=== PATIENT | female | born 2000 | race Caucasian/White ===

== ENCOUNTER 2024-09-08 12:23 | Emergency (ER) | payer OTHER ==
[~2024-09-08] VITALS: Ht 157.5 cm; Wt 42.6 kg
[2024-09-08 12:51] LABS: Source, Urine Clean Catch
[2024-09-08 12:56] LABS: BASOPHILS ABSOLUTE AUTO 0.03 K/mm3 (0.00-0.23); BASOPHILS PERCENT AUTO 0 % (0-2); EOSINOPHILS ABSOLUTE AUTO 0.07 K/mm3 (0.00-0.68); EOSINOPHILS PERCENT AUTO 1 % (0-6); Hematocrit 40.6 % (33.0-51.0); Hemoglobin 13.8 g/dL (11.5-16.0); IMMATURE GRAN ABSOLUTE AUTO 0.02 K/mm3 (0.00-0.10); IMMATURE GRAN PERCENT AUTO 0 % (0-1); LYMPHOCYTES PERCENT AUTO 16 % (21-46); MONOCYTES ABSOLUTE AUTO 0.67 K/mm3 (0.16-1.47); MONOCYTES PERCENT AUTO 7 % (4-13); Mean Corpuscular HGB 30.7 pg (26.0-34.0); Mean Corpuscular Volume 90 fL (80-100); Mean Platelet Volume 10.3 fL (9.1-12.4); NEUTROPHILS ABSOLUTE AUTO 6.87 K/mm3 (1.96-9.15); NEUTROPHILS PERCENT AUTO 75 % (41-73); Platelet Count 260 K/mm3 (150-400); RDW Coefficient Variation 13.2 % (11.7-14.2); RDW Standard Deviation 43.9 fL (35.1-46.3); White Blood Cell Count 9.16 K/mm3 (4.00-11.30)
[2024-09-08 13:15] LABS: Albumin, Blood 3.9 g/dL (3.4-5.0); Albumin/Globulin Ratio 1.1 (0.8-1.8); Bilirubin, Total 0.5 mg/dL (0.1-1.0); Bun/Creatinine Ratio 20.2 (12.0-20.0); Calcium, Blood 9.2 mg/dL (8.5-10.1); Creatinine, Blood 0.64 mg/dL (0.40-1.00); Globulin, Blood 3.5 g/dL (2.2-4.0); Total Protein, Blood 7.4 g/dL (6.4-8.2)
[2024-09-08 13:20] LABS: Appearance, Urine Hazy (Clear); Bilirubin, Urine Neg (Neg); Blood, Urine 4+ (Neg); Color, Urine Yellow (P-Yellow); Glucose Qualitative, Urine Neg (Neg); Ketones, Urine Neg (Neg); Leukocyte Esterase, Urine 3+ (Neg); Nitrite, Urine Pos (Neg); Protein, Urine 2+ (Neg); Specific Gravity, Urine 1.015 (1.003-1.022); Urobilinogen, Urine NORM (Normal)
[2024-09-08 13:27] LABS: Bacteria Many /hpf; Squamous Epithelial Cells Few /hpf (Few); White Blood Cells, Urine TNTC /hpf (0-5)
[2024-09-08] MEDS ORDERED: Cefdinir 300 MG Cap PO ONE (14:10)
[2024-09-08] MEDS ORDERED: Ketorolac Tromethamine 15mg Vial IV ONE (14:10)
[2024-09-08] MEDS ORDERED: CEFD300 PO (14:12)
== END 2024-09-08 14:22 | disposition home or self-care (01) ==
LOC: ER 12:23
PROVIDERS: Emergency Medicine
DX: N10 Acute pyelonephritis (principal); Z88.5 Allergy status to narcotic agent
CPT/HCPCS: 80053; 81001; 85025; 87077; 87086; 87186; 96374; 99283-25; A9270; J1885

== ENCOUNTER → 2024-10-21 | Outpatient (CLI) | payer OTHER ==
[~2024-10-21] MED LIST: CEFD300 PO
[2024-10-21 11:24] LABS: Source, Urine Clean Catch
[2024-10-21 13:04] LABS: Appearance, Urine Clear (Clear); Bilirubin, Urine Neg (Neg); Blood, Urine Neg (Neg); Color, Urine Yellow (P-Yellow); Glucose Qualitative, Urine Neg (Neg); Ketones, Urine 1+ (Neg); Leukocyte Esterase, Urine 1+ (Neg); Nitrite, Urine Neg (Neg); Protein, Urine 2+ (Neg); Urobilinogen, Urine 1+ (Normal)
[2024-10-21 13:15] LABS: Bacteria Few /hpf; Mucus Light (0-Heavy); Red Blood Cells, Urine Not Seen /hpf (0-2); Squamous Epithelial Cells Rare /hpf (Few); White Blood Cells, Urine 0-2 /hpf (0-5)
[2024-10-21 15:37] LABS: BASOPHILS ABSOLUTE AUTO 0.02 K/mm3 (0.00-0.23); BASOPHILS PERCENT AUTO 0 % (0-2); EOSINOPHILS ABSOLUTE AUTO 0.06 K/mm3 (0.00-0.68); EOSINOPHILS PERCENT AUTO 1 % (0-6); Hematocrit 39.8 % (33.0-51.0); Hemoglobin 13.7 g/dL (11.5-16.0); IMMATURE GRAN ABSOLUTE AUTO 0.01 K/mm3 (0.00-0.10); IMMATURE GRAN PERCENT AUTO 0 % (0-1); LYMPHOCYTES PERCENT AUTO 25 % (21-46); MONOCYTES ABSOLUTE AUTO 0.48 K/mm3 (0.16-1.47); MONOCYTES PERCENT AUTO 9 % (4-13); Mean Corpuscular HGB Conc 34.4 g/dL (31.5-36.5); Mean Corpuscular Volume 90 fL (80-100); Mean Platelet Volume 11.2 fL (9.1-12.4); NEUTROPHILS ABSOLUTE AUTO 3.64 K/mm3 (1.96-9.15); NEUTROPHILS PERCENT AUTO 65 % (41-73); Platelet Count 220 K/mm3 (150-400); RDW Coefficient Variation 13.5 % (11.7-14.2); RDW Standard Deviation 44.2 fL (35.1-46.3); Red Blood Cell Count 4.42 M/mm3 (3.80-5.20); White Blood Cell Count 5.61 K/mm3 (4.00-11.30)
[2024-10-23 09:15] LABS: HEPATITIS B SURFACE ANTIGEN Negative (Negative)
[2024-10-23 11:43] LABS: HIV 1,2 COMBO ANTIGEN/ANTIBODY Negative (Negative)
[2024-10-23 12:16] LABS: HEPATITIS C AB CIA INTERP Negative (Negative); HEPATITIS C ANTIBODY CIA INDEX 0.06 IV
== END | disposition home or self-care (01) ==
LOC: LAB 11:21 → LAB SHORT 11:21
PROVIDERS: Registered Nurse Community Health
DX: Z34.91 Encounter for supervision of normal pregnancy, unspecified, first trimester (principal)
CPT/HCPCS: 81001; 84443; 86803; 87086; 87340; 87389

== ENCOUNTER → 2024-11-04 | Outpatient (CLI) | payer OTHER | END | disposition home or self-care (01) | LOC: LAB SHORT 16:22 → LAB 16:22 | DX: R30.0 Dysuria (principal) | CPT/HCPCS: 87086; 87147 ==

== ENCOUNTER 2024-11-12 20:23 | Emergency (ER) | payer OTHER ==
[~2024-11-12] VITALS: Ht 157.5 cm; Wt 44.5 kg
[2024-11-12 20:47] LABS: BASOPHILS ABSOLUTE AUTO 0.02 K/mm3 (0.00-0.23); BASOPHILS PERCENT AUTO 0 % (0-2); EOSINOPHILS ABSOLUTE AUTO 0.04 K/mm3 (0.00-0.68); EOSINOPHILS PERCENT AUTO 1 % (0-6); Hematocrit 35.8 % (33.0-51.0); Hemoglobin 12.5 g/dL (11.5-16.0); IMMATURE GRAN PERCENT AUTO 0 % (0-1); LYMPHOCYTES ABSOLUTE AUTO 1.41 K/mm3 (0.84-5.20); LYMPHOCYTES PERCENT AUTO 26 % (21-46); MONOCYTES ABSOLUTE AUTO 0.44 K/mm3 (0.16-1.47); MONOCYTES PERCENT AUTO 8 % (4-13); Mean Corpuscular HGB 30.8 pg (26.0-34.0); Mean Corpuscular HGB Conc 34.9 g/dL (31.5-36.5); Mean Corpuscular Volume 88 fL (80-100); Mean Platelet Volume 10.4 fL (9.1-12.4); NEUTROPHILS ABSOLUTE AUTO 3.55 K/mm3 (1.96-9.15); NEUTROPHILS PERCENT AUTO 65 % (41-73); Platelet Count 170 K/mm3 (150-400); RDW Coefficient Variation 13.2 % (11.7-14.2); RDW Standard Deviation 43.1 fL (35.1-46.3); Red Blood Cell Count 4.06 M/mm3 (3.80-5.20); White Blood Cell Count 5.46 K/mm3 (4.00-11.30)
[2024-11-12 21:02] LABS: Source, Urine Clean Catch
[2024-11-12 21:05] LABS: Appearance, Urine Clear (Clear); Bilirubin, Urine Neg (Neg); Blood, Urine Neg (Neg); Color, Urine Yellow (P-Yellow); Glucose Qualitative, Urine Neg (Neg); Ketones, Urine Neg (Neg); Leukocyte Esterase, Urine Neg (Neg); Nitrite, Urine Neg (Neg); Protein, Urine Neg (Neg); Specific Gravity, Urine 1.005 (1.003-1.022); Urobilinogen, Urine NORM (Normal)
[2024-11-12 21:27] LABS: Albumin, Blood 3.9 g/dL (3.4-5.0); Albumin/Globulin Ratio 1.2 (0.8-1.8); Bilirubin, Total 0.4 mg/dL (0.1-1.0); Bun/Creatinine Ratio 13.1 (12.0-20.0); Calcium, Blood 9.3 mg/dL (8.5-10.1); Creatinine, Blood 0.53 mg/dL (0.40-1.00); Globulin, Blood 3.2 g/dL (2.2-4.0); Potassium, Blood 3.4 mmol/L (3.5-5.5); Total Protein, Blood 7.1 g/dL (6.4-8.2)
[2024-11-12] MEDS ORDERED: PRENATAL TABLE1 EAC2 (21:56)
== END 2024-11-12 22:58 | disposition home or self-care (01) ==
LOC: ER 20:23
PROVIDERS: Student in an Organized Health Care Education/Training Program
DX: O20.8 Other hemorrhage in early pregnancy (principal); Z3A.08 8 weeks gestation of pregnancy; Z88.5 Allergy status to narcotic agent; Z79.899 Other long term (current) drug therapy
CPT/HCPCS: 76801; 76817; 80053; 81003; 84702; 85025; 86850; 86900; 86901; 99284-25

== ENCOUNTER → 2024-11-21 | Outpatient (CLI) | payer OTHER ==
[~2024-11-21] MED LIST changes: +PRENATAL TABLE1 EAC2
[2024-11-23 12:04] LABS: APTIMA MEDIA TYPE Urine; C. TRACHOMATIS BY TMA Negative (Negative); N. GONORRHOEAE BY TMA Negative (Negative); SPECIMEN SOURCE Urine
== END ==
LOC: LAB SHORT 16:21 → LAB 16:21
PROVIDERS: Registered Nurse Community Health
DX: Z34.91 Encounter for supervision of normal pregnancy, unspecified, first trimester (principal)
CPT/HCPCS: 87491; 87591

== ENCOUNTER → 2024-12-05 | Outpatient (CLI) | payer OTHER | END | disposition home or self-care (01) | LOC: LAB SHORT 15:35 → LAB 15:35 | DX: E58 Dietary calcium deficiency (principal) | CPT/HCPCS: 82310 ==

== ENCOUNTER → 2024-12-31 | Outpatient (CLI) | payer OTHER | LOC: LAB 19:11 → LAB SHORT 19:11 | DX: Z34.92 Encounter for supervision of normal pregnancy, unspecified, second trimester (principal) | CPT/HCPCS: 87086 ==

== ENCOUNTER 2025-01-10 19:29 | Emergency (ER) | payer OTHER ==
[~2025-01-10] VITALS: Ht 157.5 cm; Wt 45.4 kg
[2025-01-10 20:31] LABS: BASOPHILS ABSOLUTE AUTO 0.01 K/mm3 (0.00-0.23); BASOPHILS PERCENT AUTO 0 % (0-2); EOSINOPHILS ABSOLUTE AUTO 0.02 K/mm3 (0.00-0.68); EOSINOPHILS PERCENT AUTO 0 % (0-6); Hematocrit 33.8 % (33.0-51.0); Hemoglobin 11.9 g/dL (11.5-16.0); IMMATURE GRAN ABSOLUTE AUTO 0.02 K/mm3 (0.00-0.10); IMMATURE GRAN PERCENT AUTO 0 % (0-1); LYMPHOCYTES ABSOLUTE AUTO 0.89 K/mm3 (0.84-5.20); LYMPHOCYTES PERCENT AUTO 10 % (21-46); MONOCYTES PERCENT AUTO 8 % (4-13); Mean Corpuscular HGB 31.6 pg (26.0-34.0); Mean Corpuscular HGB Conc 35.2 g/dL (31.5-36.5); Mean Corpuscular Volume 90 fL (80-100); Mean Platelet Volume 10.6 fL (9.1-12.4); NEUTROPHILS ABSOLUTE AUTO 7.38 K/mm3 (1.96-9.15); NEUTROPHILS PERCENT AUTO 82 % (41-73); Platelet Count 176 K/mm3 (150-400); RDW Standard Deviation 46.4 fL (35.1-46.3); Red Blood Cell Count 3.76 M/mm3 (3.80-5.20); White Blood Cell Count 9.02 K/mm3 (4.00-11.30)
[2025-01-10 20:32] LABS: Source, Urine Clean Catch
[2025-01-10 20:43] LABS: Appearance, Urine Clear (Clear); Bilirubin, Urine Neg (Neg); Blood, Urine Neg (Neg); Glucose Qualitative, Urine Neg (Neg); Ketones, Urine Neg (Neg); Leukocyte Esterase, Urine 1+ (Neg); Nitrite, Urine Neg (Neg); Protein, Urine Neg (Neg); Specific Gravity, Urine 1.005 (1.003-1.022); Urobilinogen, Urine NORM (Normal)
[2025-01-10 21:05] LABS: Color, Urine Pale Yellow (P-Yellow)
[2025-01-10 21:06] LABS: Bacteria Few /hpf; Red Blood Cells, Urine 0-2 /hpf (0-2); Squamous Epithelial Cells Many /hpf (Few)
[2025-01-10 21:21] LABS: Albumin, Blood 3.3 g/dL (3.4-5.0); Albumin/Globulin Ratio 0.9 (0.8-1.8); Bilirubin, Total 0.4 mg/dL (0.1-1.0); Bun/Creatinine Ratio 13.8 (12.0-20.0); Calcium, Blood 8.6 mg/dL (8.5-10.1); Creatinine, Blood 0.51 mg/dL (0.40-1.00); Globulin, Blood 3.6 g/dL (2.2-4.0); Potassium, Blood 3.6 mmol/L (3.5-5.5); Total Protein, Blood 6.9 g/dL (6.4-8.2)
[2025-01-10] MEDS ORDERED: Acetaminophen 325 MG TABLET PO ONE (21:45)
[2025-01-10] MEDS ORDERED: CEPH500 PO (22:19)
[2025-01-10] MEDS ORDERED: Cephalexin Monohydrate 500 MG Cap PO ONE (22:20)
== END 2025-01-10 22:31 ==
LOC: ER 19:29
PROVIDERS: Student in an Organized Health Care Education/Training Program
DX: O23.92 Unspecified genitourinary tract infection in pregnancy, second trimester (principal); R82.71 Bacteriuria; Z3A.16 16 weeks gestation of pregnancy; Z88.5 Allergy status to narcotic agent; Z79.899 Other long term (current) drug therapy
CPT/HCPCS: 76815; 80053; 81001; 83690; 84702; 85025; 87086; 99284-25; A9270

== ENCOUNTER 2025-02-05 00:17 | Emergency (ER) | payer OTHER ==
[~2025-02-05] VITALS: Ht 157.5 cm; Wt 46.7 kg
[~2025-02-05 00:17] MED LIST changes: +CEPH500 PO; -PRENATAL TABLE1 EAC2; +PRENATAL TABLE1 EAC2 PO
[2025-02-05 01:05] LABS: Source, Urine Clean Catch
[2025-02-05 01:13] LABS: Bilirubin, Urine Neg (Neg); Blood, Urine 2+ (Neg); Glucose Qualitative, Urine Neg (Neg); Ketones, Urine Neg (Neg); Leukocyte Esterase, Urine 3+ (Neg); Nitrite, Urine Pos (Neg); Protein, Urine 3+ (Neg); Specific Gravity, Urine 1.005 (1.003-1.022); Urobilinogen, Urine NORM (Normal)
[2025-02-05 01:25] LABS: Appearance, Urine Cloudy (Clear); Color, Urine Yellow (P-Yellow)
[2025-02-05 01:26] LABS: Bacteria Many /hpf; Squamous Epithelial Cells Not Seen /hpf (Few); White Blood Cells, Urine TNTC /hpf (0-5)
[2025-02-05 02:05] LABS: BASOPHILS ABSOLUTE AUTO 0.02 K/mm3 (0.00-0.23); BASOPHILS PERCENT AUTO 0 % (0-2); EOSINOPHILS ABSOLUTE AUTO 0.01 K/mm3 (0.00-0.68); EOSINOPHILS PERCENT AUTO 0 % (0-6); Hematocrit 32.1 % (33.0-51.0); Hemoglobin 11.1 g/dL (11.5-16.0); IMMATURE GRAN ABSOLUTE AUTO 0.07 K/mm3 (0.00-0.10); IMMATURE GRAN PERCENT AUTO 1 % (0-1); LYMPHOCYTES ABSOLUTE AUTO 0.47 K/mm3 (0.84-5.20); LYMPHOCYTES PERCENT AUTO 4 % (21-46); MONOCYTES ABSOLUTE AUTO 0.84 K/mm3 (0.16-1.47); MONOCYTES PERCENT AUTO 7 % (4-13); Mean Corpuscular HGB 31.4 pg (26.0-34.0); Mean Corpuscular HGB Conc 34.6 g/dL (31.5-36.5); Mean Corpuscular Volume 91 fL (80-100); Mean Platelet Volume 10.4 fL (9.1-12.4); NEUTROPHILS ABSOLUTE AUTO 10.11 K/mm3 (1.96-9.15); NEUTROPHILS PERCENT AUTO 88 % (41-73); Platelet Count 143 K/mm3 (150-400); RDW Standard Deviation 49.4 fL (35.1-46.3); Red Blood Cell Count 3.53 M/mm3 (3.80-5.20); White Blood Cell Count 11.52 K/mm3 (4.00-11.30)
[2025-02-05] MEDS ORDERED: NS 1,000 ML IV SCH (02:30)
[2025-02-05 02:55] LABS: Albumin/Globulin Ratio 0.9 (0.8-1.8); Bilirubin, Total 0.6 mg/dL (0.1-1.0); Bun/Creatinine Ratio 12.1 (12.0-20.0); Calcium, Blood 8.3 mg/dL (8.5-10.1); Creatinine, Blood 0.5 mg/dL (0.40-1.00); Globulin, Blood 3.5 g/dL (2.2-4.0); Potassium, Blood 3.7 mmol/L (3.5-5.5); Total Protein, Blood 6.5 g/dL (6.4-8.2)
[2025-02-05] MEDS ORDERED: CEFP200 PO (03:04)
[2025-02-05] MEDS ORDERED: Acetaminophen 500 MG Tab PO ONE (03:05)
[2025-02-05] MEDS ORDERED: Cefpodoxime Proxetil 200 MG Tab PO ONE (03:05)
== END 2025-02-05 03:17 | disposition home or self-care (01) ==
LOC: ER 00:17
PROVIDERS: Emergency Medicine
DX: O23.02 Infections of kidney in pregnancy, second trimester (principal); N12 Tubulo-interstitial nephritis, not specified as acute or chronic; Z3A.20 20 weeks gestation of pregnancy; Z79.899 Other long term (current) drug therapy; Z88.5 Allergy status to narcotic agent
CPT/HCPCS: 80053; 81001; 83690; 84702; 85025; 87077; 87086; 87186; 99284; A9270; J7030

== ENCOUNTER → 2025-02-06 | Outpatient (CLI) | payer OTHER ==
[~2025-02-06] MED LIST changes: +ACYC400 PO; +CEFP200 PO
== END ==
LOC: LAB 17:32 → LAB SHORT 17:32
DX: N89.8 Other specified noninflammatory disorders of vagina (principal)
CPT/HCPCS: 87070; 87205

== ENCOUNTER 2025-02-08 17:47 | Emergency (ER) | payer OTHER ==
[~2025-02-08] VITALS: Ht 157.5 cm; Wt 47.2 kg
[~2025-02-08 17:47] MED LIST changes: -ACYC400 PO
[2025-02-08 21:05] LABS: Source, Urine Clean Catch
[2025-02-08 21:07] LABS: BASOPHILS ABSOLUTE AUTO 0.01 K/mm3 (0.00-0.23); BASOPHILS PERCENT AUTO 0 % (0-2); EOSINOPHILS ABSOLUTE AUTO 0.05 K/mm3 (0.00-0.68); EOSINOPHILS PERCENT AUTO 2 % (0-6); Hematocrit 29.9 % (33.0-51.0); Hemoglobin 10.1 g/dL (11.5-16.0); IMMATURE GRAN ABSOLUTE AUTO 0.02 K/mm3 (0.00-0.10); IMMATURE GRAN PERCENT AUTO 1 % (0-1); LYMPHOCYTES ABSOLUTE AUTO 0.71 K/mm3 (0.84-5.20); LYMPHOCYTES PERCENT AUTO 22 % (21-46); MONOCYTES ABSOLUTE AUTO 0.49 K/mm3 (0.16-1.47); MONOCYTES PERCENT AUTO 16 % (4-13); Mean Corpuscular HGB Conc 33.8 g/dL (31.5-36.5); Mean Corpuscular Volume 92 fL (80-100); Mean Platelet Volume 10.3 fL (9.1-12.4); NEUTROPHILS ABSOLUTE AUTO 1.89 K/mm3 (1.96-9.15); NEUTROPHILS PERCENT AUTO 60 % (41-73); Platelet Count 161 K/mm3 (150-400); RDW Coefficient Variation 14.6 % (11.7-14.2); RDW Standard Deviation 49.1 fL (35.1-46.3); Red Blood Cell Count 3.26 M/mm3 (3.80-5.20); White Blood Cell Count 3.17 K/mm3 (4.00-11.30)
[2025-02-08 21:08] LABS: Appearance, Urine Clear (Clear); Blood, Urine 1+ (Neg); Glucose Qualitative, Urine Neg (Neg); Ketones, Urine Neg (Neg); Leukocyte Esterase, Urine 2+ (Neg); Nitrite, Urine Pos (Neg); Protein, Urine 2+ (Neg); Specific Gravity, Urine 1.015 (1.003-1.022); Urobilinogen, Urine 3+ (Normal)
[2025-02-08 21:14] LABS: Bilirubin, Urine 2+ (Neg); Color, Urine Orange (P-Yellow)
[2025-02-08 21:16] LABS: Bacteria Few /hpf; Mucus Light (0-Heavy); Squamous Epithelial Cells Few /hpf (Few)
[2025-02-08 21:30] LABS: Albumin, Blood 2.6 g/dL (3.4-5.0); Albumin/Globulin Ratio 0.7 (0.8-1.8); Bilirubin, Total 0.4 mg/dL (0.1-1.0); Bun/Creatinine Ratio 13.7 (12.0-20.0); Calcium, Blood 8.9 mg/dL (8.5-10.1); Creatinine, Blood 0.51 mg/dL (0.40-1.00); Globulin, Blood 3.9 g/dL (2.2-4.0); Potassium, Blood 2.8 mmol/L (3.5-5.5); Total Protein, Blood 6.5 g/dL (6.4-8.2)
[2025-02-08 22:25] LABS: Bacterial Vaginosis PCR Negative (NEGATIVE); Candida glabrata-krusei, PCR NOT DETECTED (NOT DETECT)
[2025-02-08 22:31] LABS: Candida Group, PCR DETECTED (NOT DETECT)
[2025-02-08] MEDS ORDERED: Potassium Chloride 20 MEQ/15 ML UDC PO ONE (22:35)
[2025-02-08 22:55] LABS: Chlamydia Trachomatis Vaginal NOT DETECTED (NOT DETECT); Neisseria Gonorrhoea Vaginal NOT DETECTED (NOT DETECT)
[2025-02-08] MEDS ORDERED: Acyclovir 200 MG Cap PO ONE (23:20)
[2025-02-08] MEDS ORDERED: CefTRIAXone Sodium 1,000 MG in NS 100 ML IV ONE (23:35)
[2025-02-09] MEDS ORDERED: Acetaminophen 325 MG TABLET PO PRN (00:40)
[2025-02-09] MEDS ORDERED: Ondansetron HCl 2 MG / ML 2ML Vial IV PRN (00:40)
[2025-02-09] MEDS ORDERED: Potassium Chloride 20 MEQ TabCR PO ONE (00:40)
[2025-02-09] MEDS ORDERED: ACYC400 PO (02:40)
[2025-02-09] MEDS ORDERED: CEFP200 PO (02:40)
[2025-02-09] MEDS ORDERED: Lactobacil 2-S.Thermo-Bifido 1 1 Cap PO SCH (09:00)
[2025-02-09] MEDS ORDERED: Acyclovir 400 MG Tab PO SCH (09:00)
[2025-02-09] MEDS ORDERED: CefTRIAXone Sodium 1,000 MG in NS 100 ML IV SCH (21:00)
[2025-02-11 04:58] LABS: HSV 1 GLYCOPROTEIN G AB, IGG 0.19 IV (<=0.89); HSV 2 GLYCOPROTEIN G AB, IGG 0.23 IV (<=0.89)
== END 2025-02-09 02:54 | disposition home or self-care (01) ==
LOC: ER 17:47 → ERHOLD 17:48 → ER 17:48 → ERHOLD 17:48 → ER 02-09 02:54 → ERHOLD 02-09 02:54
PROVIDERS: Student in an Organized Health Care Education/Training Program
DX: O23.02 Infections of kidney in pregnancy, second trimester (principal); O99.891 Other specified diseases and conditions complicating pregnancy; R23.8 Other skin changes; Z3A.20 20 weeks gestation of pregnancy; Z88.5 Allergy status to narcotic agent; Z79.2 Long term (current) use of antibiotics
CPT/HCPCS: 76700; 80053; 81001; 81515; 85025; 86592; 86695; 86696; 87491; 87591; 96365; 99284-25; A9270; J0696

== ENCOUNTER → 2025-02-28 | Outpatient (CLI) | payer OTHER ==
[~2025-02-28] MED LIST changes: +ACYC400 PO
== END ==
LOC: LAB 13:55 → LAB SHORT 13:55
DX: N89.8 Other specified noninflammatory disorders of vagina (principal)
CPT/HCPCS: 87070; 87205

== ENCOUNTER → 2025-03-12 | Outpatient (CLI) | payer OTHER | LOC: LAB 12:56 → LAB SHORT 12:56 | DX: N39.0 Urinary tract infection, site not specified (principal) ==

== ENCOUNTER → 2025-03-14 | Outpatient (CLI) | payer OTHER | LOC: LAB SHORT 15:53 → LAB 15:53 | DX: N39.0 Urinary tract infection, site not specified (principal); R31.9 Hematuria, unspecified | CPT/HCPCS: 87077; 87086; 87186 ==

== ENCOUNTER 2025-04-02 19:07 | Emergency (ER) | payer OTHER ==
[~2025-04-02] VITALS: Ht 157.5 cm; Wt 49.9 kg
== END 2025-04-02 21:56 | disposition home or self-care (01) ==
LOC: ER 19:07
DX: S91.312A Laceration without foreign body, left foot, initial encounter (principal); Z88.5 Allergy status to narcotic agent; W20.8XXA Other cause of strike by thrown, projected or falling object, initial encounter
CPT/HCPCS: 73630; 99283-25

== ENCOUNTER → 2025-05-06 | Outpatient (CLI) | payer OTHER | END | disposition home or self-care (01) | LOC: LAB SHORT 18:09 → LAB 18:09 | DX: N89.8 Other specified noninflammatory disorders of vagina (principal) | CPT/HCPCS: 87070; 87147; 87205 ==

== ENCOUNTER 2025-06-09 20:11 | Inpatient (IN) | payer OTHER ==
[~2025-06-09] VITALS: Ht 157.5 cm; Wt 51.4 kg
[2025-06-09 20:27] VITALS: BP 126/65
[2025-06-09] MEDS ORDERED: ePHEDrine Sulfate 50 MG/ML 1ML Injection XX PRN (20:40)
[2025-06-09] MEDS ORDERED: Oxytocin 10 Unit / ML Vial IM PRN (20:40)
[2025-06-09] MEDS ORDERED: Carboprost Tromethamine 250 MCG/ML 1ML Amp IM PRN (20:40)
[2025-06-09] MEDS ORDERED: OXYTOCIN/RINGER'S LACTATE 500 ML IV PRN (20:40)
[2025-06-09] MEDS ORDERED: FentaNYL 2mcg/ml-Bup 0.1% Epd 250 ML EPI PRN (20:40)
[2025-06-09] MEDS ORDERED: Tranexamic Acid 100 ML IV SCH (20:40)
[2025-06-09] MEDS ORDERED: Ondansetron HCl 2 MG / ML 2ML Vial IV PRN (20:40)
[2025-06-09] MEDS ORDERED: FentaNYL Citrate 50 MCG/ML 2 ML Injection IV PRN (20:40)
[2025-06-09] MEDS ORDERED: Methylergonovine Maleate 0.2MG / ML 1ML Amp IM PRN ×2 (20:40→23:45)
[2025-06-09] MEDS ORDERED: Penicillin G Potassium 5,000,000 UNITS in NS 250 ML IV ONE (20:40)
[2025-06-09] MEDS ORDERED: ACYC400 PO (20:49)
[2025-06-09 21:17] LABS: BASOPHILS ABSOLUTE AUTO 0.02 K/mm3 (0.00-0.23); BASOPHILS PERCENT AUTO 0 % (0-2); EOSINOPHILS ABSOLUTE AUTO 0.05 K/mm3 (0.00-0.68); EOSINOPHILS PERCENT AUTO 1 % (0-6); Hematocrit 36.8 % (33.0-51.0); Hemoglobin 12.5 g/dL (11.5-16.0); IMMATURE GRAN ABSOLUTE AUTO 0.04 K/mm3 (0.00-0.10); IMMATURE GRAN PERCENT AUTO 0 % (0-1); LYMPHOCYTES ABSOLUTE AUTO 1.76 K/mm3 (0.84-5.20); LYMPHOCYTES PERCENT AUTO 17 % (21-46); MONOCYTES ABSOLUTE AUTO 0.64 K/mm3 (0.16-1.47); MONOCYTES PERCENT AUTO 6 % (4-13); Mean Corpuscular HGB Conc 34.0 g/dL (31.5-36.5); Mean Corpuscular Volume 90 fL (80-100); NEUTROPHILS ABSOLUTE AUTO 7.67 K/mm3 (1.96-9.15); NEUTROPHILS PERCENT AUTO 75 % (41-73); NRBC ABSOLUTE 0.00 K/mm3 (0.00-0.02); NRBC Auto 0.0 /100 WBC (0.0-0.2); Platelet Count 178 K/mm3 (150-400); RDW Coefficient Variation 14.8 % (11.7-14.2); RDW Standard Deviation 48.7 fL (35.1-46.3)
[2025-06-09 21:38] VITALS: BP 130/62
[2025-06-09 23:38] VITALS: BP 134/62
[2025-06-09] MEDS ORDERED: Benzocaine Topical Anesthetic Spray 60GM TOP PRN (23:45)
[2025-06-09] MEDS ORDERED: Oxytocin 10 Unit / ML Vial IM ONE (23:45)
[2025-06-09 23:53] VITALS: BP 112/56
[2025-06-09] MEDS ORDERED: Witch Hazel/Glycerin PADS TOP PRN (23:55)
[2025-06-09] MEDS ORDERED: OXYTOCIN/RINGER'S LACTATE 500 ML IV SCH (23:55)
[2025-06-10] VITALS (14 sets, daily range): BP systolic 97–122; BP diastolic 52–64
[2025-06-10] MEDS ORDERED: Ketorolac Tromethamine 30mg Vial IV PRN (00:05)
[2025-06-10] MEDS ORDERED: Penicillin G Potassium 2,500,000 UNITS in Dextrose 5% 100 ML IV SCH (01:00)
[2025-06-10 06:42] LABS: BASOPHILS ABSOLUTE AUTO 0.03 K/mm3 (0.00-0.23); BASOPHILS PERCENT AUTO 0 % (0-2); EOSINOPHILS ABSOLUTE AUTO 0.04 K/mm3 (0.00-0.68); EOSINOPHILS PERCENT AUTO 0 % (0-6); Hematocrit 31.3 % (33.0-51.0); Hemoglobin 11.0 g/dL (11.5-16.0); IMMATURE GRAN ABSOLUTE AUTO 0.05 K/mm3 (0.00-0.10); IMMATURE GRAN PERCENT AUTO 0 % (0-1); LYMPHOCYTES ABSOLUTE AUTO 1.85 K/mm3 (0.84-5.20); LYMPHOCYTES PERCENT AUTO 13 % (21-46); MONOCYTES ABSOLUTE AUTO 0.85 K/mm3 (0.16-1.47); MONOCYTES PERCENT AUTO 6 % (4-13); Mean Corpuscular HGB Conc 35.1 g/dL (31.5-36.5); Mean Corpuscular Volume 90 fL (80-100); NEUTROPHILS ABSOLUTE AUTO 11.39 K/mm3 (1.96-9.15); NEUTROPHILS PERCENT AUTO 80 % (41-73); NRBC ABSOLUTE 0.00 K/mm3 (0.00-0.02); NRBC Auto 0.0 /100 WBC (0.0-0.2); Platelet Count 166 K/mm3 (150-400); RDW Coefficient Variation 14.7 % (11.7-14.2); RDW Standard Deviation 48.3 fL (35.1-46.3)
[2025-06-10] MEDS ORDERED: Prenatal Vit/FE Fumarate/FA 1 Tab PO SCH (09:00)
--- NOTE | 2025-06-10 18:51 | NUR ---
Assumed care at change of shift. Experienced mother planning to breastfeed and not requiring any assistance at this time. C/O cramping pain at times that is relieved by tylenol. Desires to go home this evening after 24hr screens complete. Orders in.
[2025-06-10] MEDS ORDERED: ACET500 PO (20:41)
--- NOTE | 2025-06-10 23:46 | NUR ---
DISCHARGE DISCHARGE HOME STABLE. CARING FOR SELF AND BABY INDEPENDANTLY. NO QUESTIONS OR CONCERNS. VERBALIZES UNDERSTANDING OF DC INSTRUCTIONS AND FOLLOW UP APPOINTMENTS. LOCHIA SCANT. VSS. AFEBRILE.
== END 2025-06-10 23:50 | disposition home or self-care (01) | DRG 806 ==
LOC: OBS 20:11 → BC 20:14 → OBS 20:45 → NUR 20:46 → OBS 20:46 → BC 20:46
PROVIDERS: ADMIT Registered Nurse Community Health
PROC: 10907ZC Drainage of Amniotic Fluid, Therapeutic from Products of Conception, Via Natural or Artificial Opening (ICD-10-PCS; 2025-06-09)
PROC: 4A1HXCZ Monitoring of Products of Conception, Cardiac Rate, External Approach (ICD-10-PCS; 2025-06-09)
PROC: 10E0XZZ Delivery of Products of Conception, External Approach (ICD-10-PCS; principal; 2025-06-10)
DX: O99.824 Streptococcus B carrier state complicating childbirth (principal); O98.52 Other viral diseases complicating childbirth; Z37.0 Single live birth; B00.9 Herpesviral infection, unspecified; Z3A.38 38 weeks gestation of pregnancy; Z88.5 Allergy status to narcotic agent; O69.81X0 Labor and delivery complicated by cord around neck, without compression, not applicable or unspecified
CPT/HCPCS: 36415; 36416; 59025; 85025; 86850; 86900; 86901; 99214; A9270; J1885; J2405; J2540; J2590; J7050; J7120